=== PATIENT | male | born 1960 | race Caucasian/White ===

== ENCOUNTER 2018-02-15 12:22 | Outpatient (CLI) | payer BC | END 2018-02-15 23:59 | disposition home or self-care (01) | LOC: CARD DIAG 12:22 | PROVIDERS: ATTEND Internal Medicine Cardiovascular Disease | DX: I51.7 Cardiomegaly (principal); I42.9 Cardiomyopathy, unspecified; N18.3 Chronic kidney disease, stage 3 (moderate); I50.9 Heart failure, unspecified | CPT/HCPCS: 93306 ==

== ENCOUNTER 2019-01-05 13:29 | Outpatient (CLI) | payer MEDICAID | END 2019-01-05 23:59 | disposition home or self-care (01) | LOC: CARD DIAG 13:29 | PROVIDERS: ATTEND Internal Medicine Cardiovascular Disease | DX: I08.8 Other rheumatic multiple valve diseases (principal); I50.22 Chronic systolic (congestive) heart failure | CPT/HCPCS: 93306 ==